=== PATIENT | female | born 1970 | race African-American/Black ===

== ENCOUNTER 2023-01-11 12:20 | Emergency (ER) | payer OTHER ==
[2023-01-11 12:32] VITALS: BMI 35.2
[2023-01-11] MEDS ORDERED: MECLIZINE HCL 25 MG TABLET (FP) PO ONE (14:10)
[2023-01-11] MEDS ORDERED: SODIUM CHLORIDE 0.9% 500 ML INFUS.BAG IV ONE (14:18)
[2023-01-11] MEDS ORDERED: METOCLOPRAMIDE HCL INJECTION 10 MG/2 ML VIAL IVPUSH ONE (14:18)
[2023-01-11 15:17] LABS: HEMATOCRIT 38.7 % (32.4-45.2); HEMOGLOBIN 13.1 GM/dL (10.7-15.3); MCH 28.1 pg (25.7-33.7); MCHC 33.9 g/dl (32.0-36.0); MEAN PLT VOLUME 7.6 fl (7.5-11.1); PLATELET COUNT 388 10^3/uL (134-434); RBC 4.66 M/mm3 (3.60-5.2); RDW 14.3 % (11.6-15.6); WHITE BLOOD COUNT 8.1 K/mm3 (4.0-10.0)
[2023-01-11] MEDS ORDERED: METOCLOPRAMIDE HCL INJECTION 10 MG/2 ML VIAL ONE (15:29)
[2023-01-11] MEDS ORDERED: MECLIZINE HCL 25 MG TABLET (FP) ONE (15:29)
[2023-01-11 15:36] LABS: BLOOD UREA NITROGEN 15.3 mg/dL (7-18); CALCIUM 9.8 mg/dL (8.5-10.1)
[2023-01-11 15:39] LABS: CREATININE 0.7 mg/dL (0.55-1.3)
[2023-01-11 15:41] LABS: BILIRUBIN,TOTAL 0.4 mg/dL (0.2-1); TOT PROT 8.6 g/dl (6.4-8.2)
[2023-01-11 16:13] VITALS: BP 132/71; PULSE 91; RESP 20; TEMP 97.9
[2023-01-11 16:37] LABS: ANISOCYTOSIS 1+; MACROCYTOSIS 0
== END 2023-01-11 16:13 | disposition home or self-care (01) ==
LOC: JER 12:20
DX: H81.399 Other peripheral vertigo, unspecified ear (principal); Z20.822 Contact with and (suspected) exposure to COVID-19
CPT/HCPCS: 0241U-QW; 36415; 80053; 82962; 85025; 93005; 93010; 99284-25